=== PATIENT | male | born 2000 | race Caucasian/White ===

== ENCOUNTER → 2023-01-11 | Outpatient (CLI) | payer MEDICAID ==
--- NOTE | 2023-01-11 09:36 | US ---
EXAMINATION TYPE: US axilla RT DATE OF EXAM: 01/11/2023 COMPARISON: NONE CLINICAL INDICATION: Male, 22 years old with history of [id number] DISORDER OF SKIN; palpable area felt in superior axilla, noticed for 2 weeks, has had prior where pus was noticed. FINDINGS: Soft tissue scan of axilla at palpable showed superficial, vascular, heterogeneous lesion = 1.2 x 0.8 x 1.2cm, probable infected hair follicle versus other etiology Lesion is dermal-based. IMPRESSION: As above. Infected sebaceous cyst is in differential. Consider dermatologic referral if does not resolve.
== END | disposition home or self-care (01) ==
LOC: RADUSWWP 08:40
PROVIDERS: ATTEND Family Medicine
DX: L98.9 Disorder of the skin and subcutaneous tissue, unspecified (principal)